=== PATIENT | male | born 1990 | race Caucasian/White ===

== ENCOUNTER 2016-07-02 16:30 | Emergency (ER) | payer OTHER ==
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
--- NOTE | 2016-07-02 17:41 | DIAGNOSTIC IMAGING REPORT ---
PROCEDURE: CT CERVICAL SPINE W/O CONTRAST INDICATION: PAIN TECHNIQUE: Noncontrast axial images with sagittal and coronal reformations. COMPARISON: None. FINDINGS: Osseous structures and disc spaces are normal. No evidence of an acute process or fracture. Alignment is normal. IMPRESSION: 1. Negative CT cervical spine. No evidence of an acute process or fracture.
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
--- NOTE | 2016-07-02 18:12 | ED ORDER SUMMARY ---
..... Patient: BHARGAVI OWENS OrderSheet [facility] VisitID: [id number] [place] [address] 26y, M Registration Date/Time: 07/02/2016 ORDER SHEET Weight: 97.5 kg (stated) Allergies: No Known Drug Allergy GENERAL ORDERS: Chest 2V Urgent (16:39 07/02/2016 EKoroleva P.A.-C) (Ack 16:41 KHoerner) CT Head wo Cont Urgent (16:39 07/02/2016 EKoroleva P.A.-C) (Ack 16:41 KHoerner) (17:07 KHoerner) CT Cervical Spine wo Cont Urgent (16:40 07/02/2016 EKoroleva P.A.-C) (Ack 16:41 KHoerner) (17:07 KHoerner) Reservations Sales Agent (Continuous) (17:37 07/02/2016 EKoroleva P.A.-C) (Ack 17:57 RKaruga) (18:00 DMaziarka R.N.) CBC w Diff Urgent (17:37 07/02/2016 EKoroleva P.A.-C) (Ack 17:57 RKaruga) (18:00 DMaziarka R.N.) CMP Urgent (17:37 07/02/2016 EKoroleva P.A.-C) (Ack 17:57 RKaruga) (18:00 DMaziarka R.N.) PT with INR Urgent (17:37 07/02/2016 EKoroleva P.A.-C) (Ack 17:57 RKaruga) (18:00 DMaziarka R.N.) PTT Urgent (17:37 07/02/2016 EKoroleva P.A.-C) (Ack 17:57 RKaruga) (18:00 DMaziarka R.N.) EKG - ER Stat (17:37 07/02/2016 EKoroleva P.A.-C) (Ack 17:57 RKaruga) (18:00 DMaziarka R.N.) UA-Culture if indicated Urgent (17:55 07/02/2016 EKoroleva P.A.-C) (Ack 17:58 RKaruga) (18:38 KWilliams R.N.) Urine Drug Screen Urgent (17:55 07/02/2016 EKoroleva P.A.-C) (Ack 17:58 RKaruga) (18:38 KWilliams R.N.) Vitals (17:56 07/02/2016 EKoroleva P.A.-C) (Ack 17:58 RKaruga) (18:00 DMaziarka R.N.) CT Thorax w Cont (No) (see lab) Urgent (18:30 07/02/2016 EKoroleva P.A.-C) (Ack 18:37 Imtiaz) MEDICATION ORDERS: IV FLUIDS: IV Saline Lock (17:35 07/02/2016 EKoroleva P.A.-C) (18:01 KWilliams R.N.) ORDER SHEET NOTES: [Electronically signed by Jaja GalvanARichy-C (22:55 07/02/2016)] [Electronically signed by Irwin Schroeder R.N. (13:18 07/05/2016)] [Electronically locked/signed by Irwin Schroeder R.N. (13:18 07/05/2016)]
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
--- NOTE | 2016-07-02 18:12 | ED ORDER SUMMARY ---
..... Patient: BHARGAVI OWENS OrderSheet [facility] VisitID: [id number] [place] [address] 26y, M Registration Date/Time: 07/02/2016 ORDER SHEET Weight: 97.5 kg (stated) Allergies: No Known Drug Allergy GENERAL ORDERS: Chest 2V Urgent (16:39 07/02/2016 EKoroleva P.A.-C) (Ack 16:41 KHoerner) CT Head wo Cont Urgent (16:39 07/02/2016 EKoroleva P.A.-C) (Ack 16:41 KHoerner) (17:07 KHoerner) CT Cervical Spine wo Cont Urgent (16:40 07/02/2016 EKoroleva P.A.-C) (Ack 16:41 KHoerner) (17:07 KHoerner) Frog Farmer (Continuous) (17:37 07/02/2016 EKoroleva P.A.-C) (Ack 17:57 RKaruga) (18:00 DMaziarka R.N.) CBC w Diff Urgent (17:37 07/02/2016 EKoroleva P.A.-C) (Ack 17:57 RKaruga) (18:00 DMaziarka R.N.) CMP Urgent (17:37 07/02/2016 EKoroleva P.A.-C) (Ack 17:57 RKaruga) (18:00 DMaziarka R.N.) PT with INR Urgent (17:37 07/02/2016 EKoroleva P.A.-C) (Ack 17:57 RKaruga) (18:00 DMaziarka R.N.) PTT Urgent (17:37 07/02/2016 EKoroleva P.A.-C) (Ack 17:57 RKaruga) (18:00 DMaziarka R.N.) EKG - ER Stat (17:37 07/02/2016 EKoroleva P.A.-C) (Ack 17:57 RKaruga) (18:00 DMaziarka R.N.) UA-Culture if indicated Urgent (17:55 07/02/2016 EKoroleva P.A.-C) (Ack 17:58 RKaruga) (18:38 KWilliams R.N.) Urine Drug Screen Urgent (17:55 07/02/2016 EKoroleva P.A.-C) (Ack 17:58 RKaruga) (18:38 KWilliams R.N.) Vitals (17:56 07/02/2016 EKoroleva P.A.-C) (Ack 17:58 RKaruga) (18:00 DMaziarka R.N.) CT Thorax w Cont (No) (see lab) Urgent (18:30 07/02/2016 EKoroleva P.A.-C) (Ack 18:37 Imtiaz) MEDICATION ORDERS: IV FLUIDS: IV Saline Lock (17:35 07/02/2016 EKoroleva P.A.-C) (18:01 KWilliams R.N.) ORDER SHEET NOTES: [Electronically signed by Jaja GalvanARichy-C (22:55 07/02/2016)] [Electronically signed by Irwin Schroeder R.N. (13:18 07/05/2016)] [Electronically locked/signed by Irwin Schroeder R.N. (13:18 07/05/2016)]
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
--- NOTE | 2016-07-05 13:18 | ED MAR SUMMARY ---
..... Medication Administration Record [facility] [address], [place] [id number] Patient: BHARGAVI OWENS Visit ID: [id number] 26y, M Weight: 97.5 kg Height/Length: 77 in BMI: 25.5 ALLERGIES: No Known Drug Allergy
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
--- NOTE | 2016-07-05 13:18 | ED MAR SUMMARY ---
..... Medication Administration Record [facility] [address], [place] [id number] Patient: BHARGAVI OWENS Visit ID: [id number] 26y, M Weight: 97.5 kg Height/Length: 77 in BMI: 25.5 ALLERGIES: No Known Drug Allergy
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
== END 2016-07-02 18:55 | disposition left against medical advice (07) ==
LOC: ED SRH 16:30 → TRANS SRH 18:37 → ED SRH 18:37 → TRANS SRH 18:37 → ED SRH 18:55
DX: S27.0XXA Traumatic pneumothorax, initial encounter (principal); V43.51XA Car driver injured in collision with sport utility vehicle in traffic accident, initial encounter; Y93.89 Activity, other specified; Y92.410 Unspecified street and highway as the place of occurrence of the external cause; Y99.8 Other external cause status
CPT/HCPCS: 90004; 90100; 92760; 92761; 92762; 92763; 92764; 92765; 92766; 92767; 94001; 94060; 95059